=== PATIENT | female | born 1965 | race Caucasian/White ===

== ENCOUNTER → 2017-03-26 | Outpatient (CLI) | payer BC ==
[~2017-03-26] MED LIST: NEURONTIN100 MG PO; PLETAL PO; PRILOSEC OTC20 MG PO
[2017-03-26 14:03] LABS: HEMATOCRIT 41.1 % (36.0-46.0); MCV 84.4 FL (83-99)
== END | disposition home or self-care (01) ==
LOC: AMB 13:05
PROVIDERS: Anesthesiology
DX: D50.9 Iron deficiency anemia, unspecified (principal); K21.9 Gastro-esophageal reflux disease without esophagitis; F41.8 Other specified anxiety disorders; R73.09 Other abnormal glucose; G47.30 Sleep apnea, unspecified; Z86.718 Personal history of other venous thrombosis and embolism; Z98.84 Bariatric surgery status; Z88.0 Allergy status to penicillin; Z80.3 Family history of malignant neoplasm of breast; Z80.49 Family history of malignant neoplasm of other genital organs; Z83.2 Family history of diseases of the blood and blood-forming organs and certain disorders involving the immune mechanism
CPT/HCPCS: 85014; 85018